=== PATIENT | female | born 2000 | race Caucasian/White ===

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

== ENCOUNTER 2020-04-18 17:52 | Emergency (ER) | payer OTHER ==
[~2020-04-18] VITALS: Ht 162.6 cm; Wt 58.1 kg
[2020-04-18 18:44] LABS: INFLUENZA A ANTIGEN Negative (Negative); INFLUENZA B ANTIGEN Negative (Negative)
[2020-04-18] MEDS ORDERED: ZPAK PO (19:47)
[2020-04-18] MEDS ORDERED: APAP W/CODEINE1 TA2 PO (19:47)
[2020-04-18] MEDS ORDERED: PROAIR HFA8.5 GM INH (19:47)
[2020-04-18 20:35] VITALS: BP 100/55
--- NOTE | 2020-04-19 12:14 | EKG ---
[place] [address] ELECTROCARDIOGRAM REPORT Name: JUANJO ANDERSON Room: [facility]#: [id number] Admission: 04/18/20 Attend Phys: Discharge: 04/18/20 Date of : [birth year] Date of Service: 04/18/201936 Report #: [id number] THIS REPORT FOR: //name// [facility] ED Test Date: 2020-04-18 Test Time: 19:37:33 Pat Name: JUANJO CARREONAUDREYMICK Department: Room: Gender: F Weekend Anchor: KALYANI : 2000 Requested By: Delilah Ambrocio Order Number: [id number] MD: Lalo Zhang Measurements Intervals [place] Rate: 94 P: 58 NE: 109 QRS: 72 QRSD: 89 T: 37 QT: 334 QTc: 418 Interpretive Statements Sinus rhythm Short NE interval No previous ECG available for comparison Electronically Signed On 04-19-2020 12:14:48 CDT by Lalo Zhang [email or web address] <ELECTRONICALLY SIGNED> By: Lalo Zhang MD, [facility] 04/19/20 1214 36 36 Lalo Zhang MD, FAC /EPI
== END 2020-04-18 20:36 | disposition home or self-care (01) ==
LOC: M.ERS 17:52
PROVIDERS: Physician Assistant
DX: J18.8 Other pneumonia, unspecified organism (principal); Z20.828 Contact with and (suspected) exposure to other viral communicable diseases